=== PATIENT | female | born 1990 | race Two or more races ===

== ENCOUNTER 2021-05-31 21:59 | Emergency (ER) | payer OTHER ==
[~2021-05-31] VITALS: Ht 170.2 cm; Wt 72.4 kg
[2021-05-31 22:01] VITALS: BP 121/66
--- NOTE | 2021-05-31 22:07 | NUR ---
PT PLACED IN C COLLAR AT THIS TIME.
[2021-06-01] MEDS ORDERED: PLEASE ENTER ALLERGIES MC SCH (03:00)
[2021-06-01] MEDS ORDERED: DIAZEPAM 5 MG TABLET PO ONE (03:00)
[2021-06-01] MEDS ORDERED: KETOROLAC 30 MG/1 ML IM ONE (03:00)
== END 2021-06-01 03:42 | disposition home or self-care (01) ==
LOC: ED 22:10
DX: S16.1XXA Strain of muscle, fascia and tendon at neck level, initial encounter (principal); S29.012A Strain of muscle and tendon of back wall of thorax, initial encounter; R07.89 Other chest pain; V49.09XA Driver injured in collision with other motor vehicles in nontraffic accident, initial encounter; Y93.89 Activity, other specified; Y92.410 Unspecified street and highway as the place of occurrence of the external cause; Y99.8 Other external cause status
CPT/HCPCS: 71045; 72125; 99284